=== PATIENT | female | born 1995 | race Caucasian/White ===

== ENCOUNTER 2020-05-07 10:45 | Outpatient (REF) | payer MEDICAID, SELFPAY | END 2020-05-07 10:46 | disposition home or self-care (01) | LOC: HO.LAB 10:45 | PROVIDERS: Visit Provider Internal Medicine | DX: Z20.828 Contact with and (suspected) exposure to other viral communicable diseases (principal) | CPT/HCPCS: C9803; U0003 ==

== ENCOUNTER 2020-05-26 11:11 | Outpatient (REF) | payer MEDICAID, SELFPAY | END 2020-05-26 11:12 | disposition home or self-care (01) | LOC: HO.LAB 11:11 | PROVIDERS: Visit Provider Internal Medicine | DX: Z20.828 Contact with and (suspected) exposure to other viral communicable diseases (principal) | CPT/HCPCS: U0003 ==

== ENCOUNTER 2021-06-30 09:17 | Emergency (ER) | payer OTHER, MEDICAID, SELFPAY ==
[2021-06-30 10:02] VITALS: BP 113/58; PULSE 70; RESP 18; TEMP 36.8; O2SAT 100; BMI 20.9
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
[2021-06-30] MEDS: Ibuprofen 400 MG TABLET PO (13:55)
== END 2021-06-30 14:03 | disposition home or self-care (01) ==
PROVIDERS: Emergency Provider Student in an Organized Health Care Education/Training Program
DX: S13.4XXA Sprain of ligaments of cervical spine, initial encounter (principal); R51.9 Headache, unspecified; V89.2XXA Person injured in unspecified motor-vehicle accident, traffic, initial encounter; Y93.9 Activity, unspecified; Y92.410 Unspecified street and highway as the place of occurrence of the external cause; Y99.9 Unspecified external cause status
CPT/HCPCS: 99283

== ENCOUNTER 2022-03-21 10:39 | Emergency (ER) | payer MEDICAID, SELFPAY | END 2022-03-21 15:07 | disposition left against medical advice (07) | PROVIDERS: Emergency Provider Emergency Medicine | DX: R42 Dizziness and giddiness (principal); R11.0 Nausea ==

== ENCOUNTER 2024-08-09 10:45 | Emergency (ER) | payer OTHER, MEDICAID, SELFPAY ==
--- NOTE | ~2024-08-09 | XR_ITS ---
EXAMINATION: XR ANKLE, LEFT CLINICAL INFORMATION: trauma COMPARISON: None available. TECHNIQUE: AP, lateral, and mortise views of the left ankle. FINDINGS: No fracture, dislocation, or suspicious bone lesion. Normal bone mineralization. Normal alignment. Mortise is preserved. Talar dome is normal. Joint spaces are preserved. No significant arthropathy. No significant joint effusion. Soft tissues appear normal. XR/XR ankle LT min 3V IMPRESSION: Normal left ankle. Electronically signed by: Jose Tolbert MD 08/09/2024 11:57 AM LOLIS
--- NOTE | ~2024-08-09 | XR_ITS ---
EXAMINATION: XR KNEE, LEFT CLINICAL INFORMATION: trauma , fall COMPARISON: None available. TECHNIQUE: Four views of the left knee. FINDINGS: No fracture, dislocation, or suspicious bone lesion. Normal bone mineralization. Normal alignment. Joint spaces are preserved. No significant arthropathy. No significant joint effusion. Soft tissues appear normal. XR/XR knee LT 3V IMPRESSION: Normal left knee. Electronically signed by: Jose Tolbert MD 08/09/2024 11:58 AM LOLIS
[2024-08-09 11:12] VITALS: BP 129/72; PULSE 99; RESP 14; TEMP 36.7; O2SAT 99; BMI 19.9
--- NOTE | 2024-08-09 11:13 | ED.GENADULT ---
HPI - General Adult General Chief complaint: Extremity Problem Stated complaint: fall L leg pain Time Seen by Provider: 08/09/24 13:12 Source: patient, RN notes reviewed and old records reviewed Mode of arrival: ambulatory Limitations: no limitations History of Present Illness ED Provider: Nenita GARCÍA narrative: 28-year-old female presents for evaluation of left leg pain. The patient reports that yesterday she fell off of 2 steps under her left side. She has pain to her left hip, knee and ankle pain She has been able to walk Denies any head strike or loss of consciousness pain She has no neck pain Related Data Allergies Allergy/AdvReac Type Severity Reaction Status Date / Time guaifenesin [From ROBITUSSIN] Allergy Unknown CONVULSION Verified 08/09/24 11:14 Review of Systems Constitutional: Constitutional: Denies chills, Denies fever(s) and Denies headache(s) ENT: Denies vertigo and Denies headache(s) Cardiovascular: Cardiovascular: Denies chest pain and Denies chest pain at rest Gastrointestinal: Gastrointestinal: Denies abdominal pain, Denies nausea and Denies vomiting Musculoskeletal: Musculoskeletal: Reports arthralgias, Reports joint swelling and Reports limited range of motion Integumentary/Breasts: Skin/Breast: Denies rash Neurologic: Denies vertigo and Denies headache(s) Physical Exam ED Vital Signs: Vital Signs - 24 hr 08/09/24 11:12 Temperature 98.0 F Pulse Rate 99 Respiratory Rate 14 Blood Pressure 129/72 Pulse Oximetry 99 Oxygen Delivery Method Room Air BMI result Body Mass Index 19.9 Const General: healthy appearing, comfortable, no acute distress, alert and awake Nutritional Appearance: well nourished Orientation/consciousness: patient oriented x3 HENMT Head: Yes normocephalic and Yes atraumatic Eyes Eyelids: Yes eyelids normal Conjunctivae: conjunctivae normal Sclerae: sclerae normal Corneas: corneas normal Pupils: Equal, round and reactive pupils present EOM: EOMs intact bilaterally Neck Neck: Yes full ROM Resp Effort & Inspection: normal respiratory effort, able to speak in complete sentences and not labored Back/Spine/Pelvis Other: Minimal tenderness to the left hip without deformity. The patient is ambulatory with a steady, even gait. She has no significant edema to the left knee or ankle. There is tenderness to left lateral knee and left lateral malleolus. Skin General skin exam: elasticity normal Neuro General: patient oriented x3 Cranial nerves: Yes Equal, round and reactive pupils present and Yes Bilaterally intact EOM present Cognition (Neuro): normal cognition Course Course Course Narrative: RME, this is a rapid medical exam performed by Barrett Gutierres please refer to primary provider for complete H&P- 28-year-old female presents for evaluation left and knee pain after a fall that happened yesterday. She reports that was the 2nd step staircase she slipped and left side. Denies head strike or loss plan for x-rays Medical Decision Making Medical Decision Making MDM Narrative: 28-year-old female presents for evaluation of left hip, knee and ankle pain. She had a fall yesterday. There was no head strike. X-rays of the left knee and ankle are negative for fracture. I have a very low suspicion for pelvic or hip fracture as the patient is ambulatory with a steady, even gait. There was no shortening or rotation of the left lower extremity. Differential Diagnosis Differential Diagnoses: The differential diagnosis associated with the presentation includes Contusion Knee sprain Ankle sprain Ankle fracture Radiology Impression Discussion of test interpretation with radiology: I have reviewed the radiologist's reading. Radiologist Impression: XR/XR ankle LT min 3V IMPRESSION: Normal left ankle. Electronically signed by: Jose Tolbert MD 08/09/2024 11:57 AM EST RP XR/XR knee LT 3V IMPRESSION: Normal left knee. Electronically signed by: Jose Tolbert MD 08/09/2024 11:58 AM EST RP Discharge Plan Discharge Clinical Impression: Contusion of hip, left Patient Disposition: Home, Self-Care Instructions: Contusion in Adults (ED) Additional Instructions: Your x-rays were negative for fracture. Use ibuprofen and Tylenol as needed for pain. I recommend applying ice to the sore/swollen areas. Follow-up with your primary doctor, return for new or worsening symptoms Stand Alone Forms: Work/School Release Print Language: Maltese
--- OUTSIDE RECORDS SUMMARY | 2024-08-09 13:34 | XMS_ITS | Clinical Summary ---
Author Organization [facility] Address [address] [place] [address] Care Team Providers Care Wooden Frame Builder Name Role Phone Flor Flores COAL SAMPLER Primary Care Provider [phone] Allergies Active Allergy Reactions Criticality Noted Date Comments Diphenhydramine 06/06/2012 Medications ibuprofen 600 MG tablet TAKE 1 TABLET 4 TIMES A DAY WITH MEALS NEEDED 02/24/2022 Active Active Problems Problem Noted Date Diagnosed Date Viral upper respiratory tract infection 06/28/19 25 Assessment & Plan (06/28/2024 1:28 PM EST): Drink plenty of fluids and rest Menstrual cramp 10/04/2022 Acne 10/04/2022 Assessment & Plan (10/04/2022 8:26 PM EDT): Previous tx options include: benzoyl peroxide, [place], and adapalene. Minimal acne on chest and back. Good sleep hygiene, exercise, and healthy diet. Referral to [facility] Derm team on 10/04/22 for further eval and tx Tonsil stone 10/04/2022 Overview (10/04/2022): -Previously referred to ENT, appt pending -Cont with salt water gargles PRN Resolved Problems Problem Noted Date Diagnosed Date Resolved Date Foot callus 06/29/2018 10/04/2022 Encounters Date Type Department Care Team Description 06/28/2024 11:00 AM EST Office Visit [facility] [address], [place] [phone] Rocío Yang MD Viral upper respiratory tract infection (Primary Dx); Viral URI 06/18/2024 Telephone [facility] [address] [place] [address] Karime BoyerSENIA from Last 3 Months Immunizations Name Administration Dates Next Due DTaP 09/11/2001, 8,04/18/1997,02/07,1996 HPV 9-Valent 09/01/2015 HPV, Quadrivalent 05/02/2014,03/04/2014 Hep A, ped/adol, 2 dose 05/02/2014 Hep B, Adolescent or Pediatric 04/18/1997,1996,1996 Hib (HbOC) 10/22/1997, 7,02/07/1997,12/10 IPV 09/11/2001, 8,02/07/1997,12/10 Influenza injectable quadriv alent IIV4 with preservative 07/13/2017 Influenza injectable quadriv alent preservative free 10/04/2022,06/16/2021 MMR 04/27/1998 MMRV 09/11/2001 Meningococcal MCV4P [id number]-135 10/15/2018,01/19/20 11 Pfizer Covid-19 Vaccine 12+ Bivalent 10/04/2022 Tdap 10/15/2018,09/02/2008 Varicella 10/22/1997 Family History Medical History Relation Name Comments Ovarian cancer Maternal Grandmother Relation Name Status Comments Maternal Grandmother Social History Tobacco Use Types Packs/Day Years Used Date Smoking Tobacco: Never Smokeless Tobacco: Never Alcohol Use Standard Drinks/Week Comments Never 0 (1 standard drink = 0.6 oz pur e alcohol) Housing Stability Answer Date Recorded What is your housing situation today? I have ruthie sing 04/12/[address] you li ve. Do you have problems with any of the following? None of the above 04/12/2023 Food Insecurity Answer Date Recorded Within the past 12 months, y ou worried that your food would run out before you got money to buy more: Never True 04/12/2023 Within the past 12 months,th e food you bought just didn't last and you didn't have enough money to get more: Never True Transportation Answer Date Recorded In the past 12 months, has l ack of transportation kept you from medical appts, meetings, work or from getting things needed for daily living? No 04/12/2023 Utilities Answer Date Recorded In the past 12 months, has t he electric, gas, oil or water company threatened to shut off services in your home? No 04/12/2023 Comments Unknown Sex and Gender Information Value Date Recorded Sex Assigned at Female 04/25/2022 10:17 AM EDT Legal Sex Female 10:17 AM EDT Gender Identity Female 04/25/2022 10:17 AM EDT Sexual Orientation Choose not to disclose 2021 10:17 AM EDT Last Filed Vital Signs Vital Sign Reading Time Taken Comments Blood Pressure 117/77 06/28/2024 11:03 AM EST Pulse 102 06/28/2024 11:03 AM EST Temperature 36.7 ??C (98.1 ??F) 06/28/2024 11:[address] Respiratory Rate 19 06/28/2024 11:03 AM EST Oxygen Saturation 97% 06/28/2024 11:03 AM EST Inhaled Oxygen Concentration - - Weight 59.1 kg (130 lb 6.4 oz) 06/28/2024 11:03 AM EST Height 170.2 cm (5' 7 ) 11/07/2022 3:53 PM EDT Body Mass Index 20.42 11/07/2022 3:53 PM EDT Plan of Treatment Health Maintenance Due Date Last Done Comments Depression Screening 1996 HIV Screening 1996 Alcohol/Substance Use Screening 2008 Family Planning (PISQ) 10/09/2011 Hepatitis C Screening 2014 Hepatitis A Vaccines (2 of 2 - 2-dose series) 10/30/2014 05/02/2014 Pap Smear 2017 SDOH Screening 09/28/2023 09/27/2022 Tobacco Screening 11/08/2023 11/07/2022 COVID-19 Vaccine ( season) 2024 10/04/2022, 05/11/2021, 09/23/2020 Influenza Vaccine (#1) 2024 , 06/16/2021, 07/13/2017 DTaP/Tdap/Td Vaccines (8 - Td or Tdap) 10/15/2028 10/15/2018, 09/02/2008, 09/11/2001, Additional history exists Zoster Vaccines (1 of 2) 2046 RSV Patients and Patients Aged 60 years or older (1 - 1-dose 75+ series) 10/09/2071 Hepatitis B Vaccines Completed 04/18/1997, 1996, 1996 HIB Vaccines Completed 10/22/1997, 03/27, 02/07/1997, Additional history exists IPV Vaccines Completed 09/11/2001, 09/25, 02/07/1997, Additional history exists HPV Vaccines Completed 09/01/2015, 12/2013, 03/04/2014 Meningococcal Vaccine Aged Out 10/15/2018, 011 No longer eligible based on patient's age to complete this topic Pneumococcal Vaccine: Pediatrics (0 to 5 Years) and At-Risk Patients (6 to 49) Years) Aged Out No longer eligible based on patient's age to complete this topic RSV under 20 months Aged Out No longe r eligible based on patient's age to complete this topic Rotavirus Vaccines Aged Out No longer eligible based on patient's age to complete this topic Procedures Procedure Name Priority Date/Time Associated Diagnosis Comments POCT RAPID STREP A Routine 06/28/2024 11 :49 AM EST Viral URI POCT INFLUENZA B (ID NOW RAPID MOLECULAR) Routine 06/28/2024 11:19 AM EST Viral URI POCT INFLUENZA A (ID NOW RAPID MOLECULAR) Routine 06/28/2024 11:19 AM EST Viral URI POCT RAPID COVID ANTIGEN Routine 06/28/2024 11:19 AM EST Viral URI from Last 3 Months Results * POCT rapid strep A manually resulted (06/28/2024 11:49 AM EST) [facility] Rapid Strep A Screen Negative Negative, None Detected Swab 06/28/2024 11:4 9 AM EST us Rocío Lambert MD POINT OF CARE TEST EN TER/EDIT ORDERABLES Final Result * Influenza B (ID NOW Rapid Molecular) (06/28/2024 11:19 AM EST) Influenza B Negative Negative, Indeterminate [facility] Swab 06/28/2024 11:1 9 AM EST Rocío Lambert MD POINT OF CARE TEST EN TER/EDIT ORDERABLES Final Result Performing Organization Address [facility]/ZIP Co de Phone Number [facility] [address] [place] [phone] * Influenza A (ID NOW Rapid Molecular) (06/28/2024 11:19 AM EST) Influenza A Negative Negative, Indeterminate [facility] Swab 06/28/2024 11:1 9 AM EST Rocío Lambert MD POINT OF CARE TEST EN TER/EDIT ORDERABLES Final Result Performing Organization Address [facility] Co de Phone Number [facility] [address] [place] [phone] * POCT Rapid COVID Ag (06/28/2024 11:19 AM EST) Rapid COVID Ag Negative [facility] Swab 06/28/2024 11:1 9 AM EST Rocío Lambert MD POINT OF CARE TEST EN TER/EDIT ORDERABLES Final Result Performing Organization Address [facility]/ZIP Co de Phone Number [facility] [address] [place] [phone] from Last 3 Months Insurance [facility] C3 Care Teams Wooden Frame Builder Relationship Specialty Start Date End Date Flor Flores FNP [address] [place] [phone] PCP - General Family Medicine 06/16/21
[2024-08-09 14:04] VITALS: BP 129/72; PULSE 99; RESP 14; TEMP 36.7; O2SAT 99
== END 2024-08-09 14:04 | disposition home or self-care (01) ==
PROVIDERS: Emergency Provider Emergency Medicine; PCP Registered Nurse
DX: S70.02XA Contusion of left hip, initial encounter (principal); M25.572 Pain in left ankle and joints of left foot; M25.562 Pain in left knee; W10.9XXA Fall (on) (from) unspecified stairs and steps, initial encounter; Y93.89 Activity, other specified; Y92.89 Other specified places as the place of occurrence of the external cause; Y99.8 Other external cause status
CPT/HCPCS: 73562; 73610; 99282; 99283

== ENCOUNTER → 2024-08-09 11:13 | Outpatient (BNV) | payer MEDICAID, SELFPAY | PROVIDERS: PCP Registered Nurse; Visit Provider Radiology Diagnostic Radiology | DX: M25.572 Pain in left ankle and joints of left foot (principal); M25.562 Pain in left knee | CPT/HCPCS: 73562; 73610 ==